=== PATIENT | female | born 1930 | race American Indian/Alaskan Native ===

== ENCOUNTER 2019-11-18 22:09 | Observation (INO) | payer MEDICARE ==
[2019-11-18] MEDS ORDERED: SODIUM CHLORIDE 0.9% 1000 ML 1,000 ML ONE (22:34)
[2019-11-18] MEDS ORDERED: SODIUM CHLORIDE 0.9% 1000 ML 1,000 ML IV ONE ×2 (22:35)
--- NOTE | 2019-11-18 22:49 | Emergency Department Report ---
ED Altered Mental Status HPI - General Chief Complaint: Altered Mental Status Stated Complaint: AMS Time Seen by Provider: 11/18/19 22:21 Source: family, EMS, old records reviewed (no previous record) Mode of arrival: Stretcher Limitations: Altered Mental Status - History of Present Illness Initial Comments: 89-year-old female presents from home with alteration in mental status 1 day. Patient has a past medical history dementia, carotid plaque, asthma, and chronic pain secondary to arthritis. Patient lives with her daughter. I spoke to her daughter via telephone and she states that visiting nurse today found patient to be hypoxic with a room air saturation in the 70s and decreased responsiveness. Patient's room air saturation is typically 92-96%. Only mild cough reported. Until today patient was eating and drinking appropriately, no fever, no complaints of pain, and at baseline mental status. Patient takes Namenda, Risperdal, Plavix, lorazepam, Tylenol arthritis,tramadol, and Advair.Patient's granddaughter at the bedside and states the patient is less responsive than her baseline. Blood glucose 65 in route. We are having difficulty obtaining a pulse oximetry upon arrival. Patient has had multiple abdominal surgeries for , cholecystectomy, possible hysterectomy as per granddaughter Patient denies any pain currently. Noted to bedside at 1:30 AM every interviewed. Informed that patient has a UTI. She states that patient recently completed Cipro 5 days ago for UTI. - Related Data Allergies Allergy/AdvReac Type Severity Reaction Status Date / Time ampicillin Allergy Unknown Verified 11/18/19 22:20 aspirin Allergy Unknown Verified 11/18/19 22:20 metoclopramide [From Reglan] Allergy Unknown Verified 11/18/19 22:20 morphine Allergy Unknown Verified 11/18/19 22:20 oxycodone Allergy Unknown Verified 11/18/19 22:20 ED Review of Systems ROS: Stated complaint: AMS Other details as noted in HPI Comment: All other systems reviewed and negative ED Past Medical Hx - Past Medical History Hx Asthma: Yes ED Physical Exam - General Limitations: Altered Mental Status - Other Other exam information: General: No limitations, patient is alert in no acute distress Head exam: Atraumatic, normocephalic Eyes exam: Normal appearance pupils equal and reactive to light, extraocular movements intact ENT: Moist mucous membrane Neck exam: Normal inspection, full range of motion Respiratory exam: Diminished breath sounds without rales or crackles Cardiovascular: Normal rate and rhythm Abdomen: Soft, nondistended, and nontender, with normal bowel sounds, no rebound, or guarding. Midline vertical surgical scar Extremity: Right knee postoperative change noted, no leg edema Back: Normal Inspection Neurologic: Lethargic but easily arousable to voice and tactile stimulation, oriented to place and name. Equal hand special tester and foot dorsiflexion. Patient does not ambulate at her baseline. Sensation grossly intact to touch bilaterally Psychiatric: Normal mood, affect Skin: No rash ED Course Vital Signs 11/18/19 11/18/19 11/18/19 22:09 22:18 22:30 Temperature 98.1 F Pulse Rate 91 H 90 92 H Respiratory 16 16 17 Rate Blood Pressure 64/26 65/23 Blood Pressure 64/26 [Right] O2 Sat by Pulse Oximetry 11/18/19 11/18/19 11/18/19 23:00 23:30 23:35 Temperature Pulse Rate 91 H 91 H Respiratory 12 18 Rate Blood Pressure 60/24 163/80 Blood Pressure [Right] O2 Sat by Pulse 100 Oximetry 11/19/19 11/19/19 11/19/19 00:00 00:07 01:00 Temperature Pulse Rate 93 H 88 Respiratory 13 16 Rate Blood Pressure Blood Pressure 151/94 179/90 [Right] O2 Sat by Pulse 99 100 100 Oximetry 11/19/19 11/19/19 01:30 02:00 Temperature Pulse Rate 86 86 Respiratory 17 17 Rate Blood Pressure 166/85 168/92 Blood Pressure 168/92 [Right] O2 Sat by Pulse 100 Oximetry - Reevaluation(s) Reevaluation #1: 11/18/19 23:58 On arrival with difficulty obtaining pulse oximetry. ABG requested on room air. ABG results after oxygen removal. Pulse ox then picked up a saturation of 100% on room air with good waveform. Systolic blood pressure improved dramatically after 1 L normal saline IV bolus. Reevaluation #2: 11/19/19 01:38 Levaquin ordered for UTI given her penicillin allergy (hives). Unclear at this time the patient can tolerate cephalosporins. However, daughter states that she recently completed Cipro therefore patient will be changed to another class. One dose of gentamicin IV ordered and Levaquin canceled. Urine culture is pending. - Lab Data Result diagrams: 11/18/19 22:40 02/04/20 23:15 Lab Results 11/18/19 11/18/19 11/18/19 Range/Units 22:40 22:40 22:59 WBC 12.7 H (4.5-11.0) K/mm3 RBC 4.70 (3.65-5.03) M/mm3 Hgb 14.1 (10.1-14.3) gm/dl Hct 41.9 (30.3-42.9) % MCV 89 (79-97) fl MCH 30 (28-32) pg MCHC 34 (30-34) % RDW 13.4 (13.2-15.2) % Plt Count 281 (140-440) K/mm3 Lymph % (Auto) 4.5 L (13.4-35.0) % [place] % (Auto) 5.4 (0.0-7.3) % Eos % (Auto) 0.0 (0.0-4.3) % Baso % (Auto) 0.1 (0.0-1.8) % Lymph # 0.6 L (1.2-5.4) K/mm3 [place] # 0.7 (0.0-0.8) K/mm3 Eos # 0.0 (0.0-0.4) K/mm3 Baso # 0.0 (0.0-0.1) K/mm3 Seg Neutrophils % 90.0 H (40.0-70.0) % Seg Neutrophils # 11.5 H (1.8-7.7) K/mm3 PT 13.4 (12.2-14.9) Sec. INR 1.01 (0.87-1.13) APTT 27.5 (24.2-36.6) Sec. ABG pH 7.415 (7.350-7.450) pH Units ABG pCO2 39.1 mm Hg ABG pO2 178.8 H (80.0-90.0) mm Hg ABG HCO3 24.5 (20.0-26.0) mmol/L ABG O2 Saturation 99.1 H (95.0-99.0) % ABG O2 Content 16.6 (0.0-44) ABG Base Excess 0.1 (-2.0-3.0) mmol/L ABG Hemoglobin 12.1 (12.0-16.0) gm/dl ABG Carboxyhemoglobin 2.9 (0.0-5.0) % ABG Methemoglobin 0.6 (0.0-1.5) % VBG pH 7.415 (7.320-7.420) Oxyhemoglobin 95.6 (95.0-99.0) % FiO2 21 % Sodium (137-145) mmol/L Potassium (3.6-5.0) mmol/L Chloride (98-107) mmol/L Carbon Dioxide (22-30) mmol/L Anion Gap mmol/L BUN (7-17) mg/dL Creatinine (0.7-1.2) mg/dL Estimated GFR ml/min BUN/Creatinine Ratio % Glucose (65-100) mg/dL Lactic Acid (0.7-2.0) mmol/L Calcium (8.4-10.2) mg/dL Magnesium (1.7-2.3) mg/dL Total Bilirubin (0.1-1.2) mg/dL AST (5-40) units/L ALT (7-56) units/L Alkaline Phosphatase (35-129) units/L Total Creatine Kinase (30-135) units/L CK-MB (CK-2) (0.0-4.0) ng/mL CK-MB (CK-2) Rel Index (0-4) Troponin T (0.00-0.029) ng/mL Total Protein (6.3-8.2) g/dL Albumin (3.9-5) g/dL Albumin/Globulin Ratio % Urine Color (Yellow) Urine Turbidity (Clear) Urine pH (5.0-7.0) Ur Specific [place] (1.003-1.030) Urine Protein (Negative) mg/dL Urine Glucose (UA) (Negative) mg/dL Urine Ketones (Negative) mg/dL Urine Blood (Negative) Urine Nitrite (Negative) Urine Bilirubin (Negative) Urine Urobilinogen (<2.0) mg/dL Ur Leukocyte Esterase (Negative) Urine WBC (Auto) (0.0-6.0) /HPF Urine RBC (Auto) (0.0-6.0) /HPF U Epithel Cells (Auto) (0-13.0) /HPF Urine Bacteria (Auto) (Negative) /HPF Urine WBC Clumps /HPF Hyaline Casts /LPF Urine Mucus /HPF 11/18/19 11/18/19 11/18/19 Range/Units 23:15 23:15 23:15 WBC (4.5-11.0) K/mm3 RBC (3.65-5.03) M/mm3 Hgb (10.1-14.3) gm/dl Hct (30.3-42.9) % MCV (79-97) fl MCH (28-32) pg MCHC (30-34) % RDW (13.2-15.2) % Plt Count (140-440) K/mm3 Lymph % (Auto) (13.4-35.0) % [place] % (Auto) (0.0-7.3) % Eos % (Auto) (0.0-4.3) % Baso % (Auto) (0.0-1.8) % Lymph # (1.2-5.4) K/mm3 [place] # (0.0-0.8) K/mm3 Eos # (0.0-0.4) K/mm3 Baso # (0.0-0.1) K/mm3 Seg Neutrophils % (40.0-70.0) % Seg Neutrophils # (1.8-7.7) K/mm3 PT (12.2-14.9) Sec. INR (0.87-1.13) APTT (24.2-36.6) Sec. ABG pH (7.350-7.450) pH Units ABG pCO2 mm Hg ABG pO2 (80.0-90.0) mm Hg ABG HCO3 (20.0-26.0) mmol/L ABG O2 Saturation (95.0-99.0) % ABG O2 Content (0.0-44) ABG Base Excess (-2.0-3.0) mmol/L ABG Hemoglobin (12.0-16.0) gm/dl ABG Carboxyhemoglobin (0.0-5.0) % ABG Methemoglobin (0.0-1.5) % VBG pH (7.320-7.420) Oxyhemoglobin (95.0-99.0) % FiO2 % Sodium 143 (137-145) mmol/L Potassium 4.7 (3.6-5.0) mmol/L Chloride 106.6 (98-107) mmol/L Carbon Dioxide 24 (22-30) mmol/L Anion Gap 17 mmol/L BUN 19 H (7-17) mg/dL Creatinine 0.9 (0.7-1.2) mg/dL Estimated GFR 59 ml/min BUN/Creatinine Ratio 21 % Glucose 129 H (65-100) mg/dL Lactic Acid 1.00 (0.7-2.0) mmol/L Calcium 9.1 (8.4-10.2) mg/dL Magnesium (1.7-2.3) mg/dL Total Bilirubin 0.40 (0.1-1.2) mg/dL AST 17 (5-40) units/L ALT 10 (7-56) units/L Alkaline Phosphatase 78 (35-129) units/L Total Creatine Kinase (30-135) units/L CK-MB (CK-2) (0.0-4.0) ng/mL CK-MB (CK-2) Rel Index (0-4) Troponin T 0.045 H (0.00-0.029) ng/mL Total Protein 5.7 L (6.3-8.2) g/dL Albumin 3.6 L (3.9-5) g/dL Albumin/Globulin Ratio 1.7 % Urine Color (Yellow) Urine Turbidity (Clear) Urine pH (5.0-7.0) Ur Specific [place] (1.003-1.030) Urine Protein (Negative) mg/dL Urine Glucose (UA) (Negative) mg/dL Urine Ketones (Negative) mg/dL Urine Blood (Negative) Urine Nitrite (Negative) Urine Bilirubin (Negative) Urine Urobilinogen (<2.0) mg/dL Ur Leukocyte Esterase (Negative) Urine WBC (Auto) (0.0-6.0) /HPF Urine RBC (Auto) (0.0-6.0) /HPF U Epithel Cells (Auto) (0-13.0) /HPF Urine Bacteria (Auto) (Negative) /HPF Urine WBC Clumps /HPF Hyaline Casts /LPF Urine Mucus /HPF 11/18/19 11/18/19 11/18/19 Range/Units 23:15 23:20 23:58 WBC (4.5-11.0) K/mm3 RBC (3.65-5.03) M/mm3 Hgb (10.1-14.3) gm/dl Hct (30.3-42.9) % MCV (79-97) fl MCH (28-32) pg MCHC (30-34) % RDW (13.2-15.2) % Plt Count (140-440) K/mm3 Lymph % (Auto) (13.4-35.0) % [place] % (Auto) (0.0-7.3) % Eos % (Auto) (0.0-4.3) % Baso % (Auto) (0.0-1.8) % Lymph # (1.2-5.4) K/mm3 [place] # (0.0-0.8) K/mm3 Eos # (0.0-0.4) K/mm3 Baso # (0.0-0.1) K/mm3 Seg Neutrophils % (40.0-70.0) % Seg Neutrophils # (1.8-7.7) K/mm3 PT (12.2-14.9) Sec. INR (0.87-1.13) APTT (24.2-36.6) Sec. ABG pH (7.350-7.450) pH Units ABG pCO2 mm Hg ABG pO2 (80.0-90.0) mm Hg ABG HCO3 (20.0-26.0) mmol/L ABG O2 Saturation (95.0-99.0) % ABG O2 Content (0.0-44) ABG Base Excess (-2.0-3.0) mmol/L ABG Hemoglobin (12.0-16.0) gm/dl ABG Carboxyhemoglobin (0.0-5.0) % ABG Methemoglobin (0.0-1.5) % VBG pH (7.320-7.420) Oxyhemoglobin (95.0-99.0) % FiO2 % Sodium (137-145) mmol/L Potassium (3.6-5.0) mmol/L Chloride (98-107) mmol/L Carbon Dioxide (22-30) mmol/L Anion Gap mmol/L BUN (7-17) mg/dL Creatinine (0.7-1.2) mg/dL Estimated GFR ml/min BUN/Creatinine Ratio % Glucose (65-100) mg/dL Lactic Acid (0.7-2.0) mmol/L Calcium (8.4-10.2) mg/dL Magnesium 2.20 (1.7-2.3) mg/dL Total Bilirubin (0.1-1.2) mg/dL AST (5-40) units/L ALT (7-56) units/L Alkaline Phosphatase (35-129) units/L Total Creatine Kinase 31 (30-135) units/L CK-MB (CK-2) 2.6 (0.0-4.0) ng/mL CK-MB (CK-2) Rel Index 8.3 H (0-4) Troponin T (0.00-0.029) ng/mL Total Protein (6.3-8.2) g/dL Albumin (3.9-5) g/dL Albumin/Globulin Ratio % Urine Color [place] (Yellow) Urine Turbidity Turbid (Clear) Urine pH 5.0 (5.0-7.0) Ur Specific [place] 1.015 (1.003-1.030) Urine Protein <15 mg/dl (Negative) mg/dL Urine Glucose (UA) Neg (Negative) mg/dL Urine Ketones Neg (Negative) mg/dL Urine Blood Mod (Negative) Urine Nitrite Neg (Negative) Urine Bilirubin Neg (Negative) Urine Urobilinogen < 2.0 (<2.0) mg/dL Ur Leukocyte Esterase Lg (Negative) Urine WBC (Auto) > 182.0 H (0.0-6.0) /HPF Urine RBC (Auto) 22.0 (0.0-6.0) /HPF U Epithel Cells (Auto) 1.0 (0-13.0) /HPF Urine Bacteria (Auto) 2+ (Negative) /HPF Urine WBC Clumps 3+ /HPF Hyaline Casts 6 /LPF Urine Mucus 1+ /HPF - EKG Data -: EKG Interpreted by Pr EKG shows normal: sinus rhythm, ST-T waves (lvh) Rate: normal (97) When compared to previous EKG there are: previous EKG unavailable - Radiology Data Radiology results: report reviewed CHEST 1 VIEW INDICATION: MAIN: ams, hypotension, cough; A.M.S received from home, Bld. glucose 65 per e.m.s; response to touch, mumbles.. COMPARISON: None FINDINGS: Support devices: None. Heart: Within normal limits. Lungs/Pleura: No acute air space or interstitial disease. Additional findings: None. IMPRESSION: 1. No acute findings. CT head without contrast HISTORY: Altered Mental Status. TECHNIQUE: Axial imaging performed from the skull apex through the skull base without the use of contrast. All CT scans at this location are performed using CT dose reduction for ALARA by means of automated exposure control. COMPARISON: None FINDINGS: Parenchyma: No acute intracranial hemorrhage or parenchymal abnormality. Ventricles: There is mild diffuse brain atrophy with commensurate ventricular enlargement which is likely age appropriate. Soft tissues: Soft tissues including the orbits appear normal. Bones: No acute osseous abnormality. Sinuses: Sinuses and mastoid air cells are clear. IMPRESSION: No acute abnormality. - Medical Decision Making She presented with hypotension alteration in mental status. Difficulty obtaining pulse oximetry during hypotension. Blood pressure improved with normal saline hydration and pulse ox was 100% on room air. ABG performed with out acid-base disturbance. Patient's is thought to be altered secondary to UTI with recent failed outpatient treatment. Patient provided a dose of gentamicin in the ED. No signs of septic shock or lactic acidosis. CT head unremarkable for acute findings. Hospitalists informed mild trop elevation noted, repeat pending at disp, pt allergic to asa no reports of cp - Differential Diagnosis mi, infection, uti, cva, sepsis, anemia, dehydration Critical Care Time: No Critical care attestation.: If time is entered above; I have spent that time in minutes in the direct care of this critically ill patient, excluding procedure time. ED Disposition Clinical Impression: Altered mental status, UTI (urinary tract infection), Elevated troponin, Dementia Disposition: OP ADMIT IP TO THIS HOSP Is pt being admited?: Yes Does the pt Need Aspirin: No (allergic) Condition: Stable Time of Disposition: 02:20 (Dr Celis/hosp)
[2019-11-18 22:57] LABS: Basophils % (Auto) 0.1 % (0.0-1.8); Hematocrit 41.9 % (30.3-42.9); Hemoglobin 14.1 gm/dl (10.1-14.3); Lymphocytes # (Auto) 0.6 K/mm3 (1.2-5.4); Lymphocytes % (Auto) 4.5 % (13.4-35.0); Mean Corpuscular HGB Conc 34 % (30-34); Mean Corpuscular Volume 89 fl (79-97); Monocytes # (Auto) 0.7 K/mm3 (0.0-0.8); Monocytes % (Auto) 5.4 % (0.0-7.3); Platelet Count 281 K/mm3 (140-440); Red Cell Distribution Width 13.4 % (13.2-15.2)
[2019-11-18 23:07] LABS: INR 1.01 (0.87-1.13)
[2019-11-18 23:08] LABS: Partial Thromboplastin Time 27.5 Sec. (24.2-36.6)
--- NOTE | 2019-11-18 23:11 | XRay Report ---
CHEST 1 VIEW INDICATION: MAIN: ams, hypotension, cough; A.M.S received from home, Bld. glucose 65 per e.m.s; response to touch , mumbles.. COMPARISON: None FINDINGS: Support devices: None. Heart: Within normal limits. Lungs/Pleura: No acute air space or interstitial disease. Additional findings: None. IMPRESSION: 1. No acute findings. Signer Name: Gianluca Earl MD Signed: 11/18/2019 11:07 PM Workstation Name: [id number]
[2019-11-18 23:48] LABS: ABG Base Excess 0.1 mmol/L (-2.0-3.0); ABG HCO3 24.5 mmol/L (20.0-26.0); ABG Methemoglobin 0.6 % (0.0-1.5); ABG Oxygen Saturation 99.1 % (95.0-99.0); ABG PCO2 39.1 mm Hg; ABG PH 7.415 pH Units (7.350-7.450); ABG PO2 178.8 mm Hg (80.0-90.0); VEN PH 7.415 (7.320-7.420)
[2019-11-18 23:54] LABS: Creatine Kinase MB 2.6 ng/mL (0.0-4.0)
[2019-11-18 23:56] LABS: Albumin 3.6 g/dL (3.9-5); Calcium 9.1 mg/dL (8.4-10.2)
[2019-11-19 00:38] LABS: Bacteria,Urine 2+ /HPF (Negative); Bilirubin,Urine NEG (Negative); Blood,Urine MOD (Negative); Color,Urine Amber (Yellow); Hyaline Casts,Urine 6 /LPF; Mucus,Urine 1+ /HPF; Protein,Urine <15 mg/dL mg/dL (Negative); Urobilinogen,Urine < 2.0 mg/dL (<2.0)
[2019-11-19 00:47] LABS: WBC,Urine > 182.0 /HPF (0.0-6.0)
[2019-11-19] MEDS ORDERED: GENTAMICIN IV ONE (01:40)
[2019-11-19] MEDS ORDERED: SODIUM CHLORIDE 0.9% IV ONE (01:40)
--- NOTE | 2019-11-19 02:01 | Cat Scan Report ---
CT head without contrast HISTORY: Altered Mental Status. TECHNIQUE: Axial imaging performed from the skull apex through the skull base without the use of con trast. All CT scans at this location are performed using CT dose reduction for ALARA by means of aut omated exposure control. COMPARISON: None FINDINGS: Parenchyma: No acute intracranial hemorrhage or parenchymal abnormality. Ventricles: There is mild diffuse brain atrophy with commensurate ventricular enlargement which is l ikely age appropriate. Soft tissues: Soft tissues including the orbits appear normal. Bones: No acute osseous abnormality. Sinuses: Sinuses and mastoid air cells are clear. IMPRESSION: No acute abnormality. Signer Name: Gianluca Earl MD Signed: 11/19/2019 1:57 AM Workstation Name: [id number]
[2019-11-19] MEDS ORDERED: ONDANSETRON 4 MG/2 ML INJ IV PRN (03:25)
[2019-11-19] MEDS ORDERED: ACETAMINOPHEN 325 MG TAB PO PRN (03:25)
[2019-11-19] MEDS ORDERED: MAGNESIUM HYDROXIDE (MOM) ORAL LIQD UDC PO PRN (03:25)
[2019-11-19 03:29] LABS: Chol/HDL Ratio 2.82 %
--- NOTE | 2019-11-19 03:50 | History and Physical Report ---
History of Present Illness Date of examination: 11/19/19 Date of admission: 11/19/2019 Chief complaint: Altered mental status History of present illness: 89-year-old -[place] female brought into the emergency room today because of a change in mental status. Patient has known history of dementia, asthma and chronic back pain secondary to arthritis. She was said to be on respite care was found to be hypoxic today with O2 saturation in the 70s and has been less responsive. There is been no history of fever or chills, no nausea vomiting and no diarrhea, no chest pain or shortness of breath. Patient has been on routine medications which includes Namenda, Risperdal, lorazepam, Plavix and Tylenol for arthritis. In route to the hospital blood glucose was said to be 65. It was initially difficult to get oxygen saturation upon arrival in the emergency room but after being placed on oxygen by nasal cannula and placed on IV fluid oxygen saturation improved into the 90s. Granddaughter indicates that patient had recently finished a course of ciproflox acin for urinary tract infection. There has been no hematuria or dysuria. Past History Past Medical History: other (Asthma, dementia) Past Surgical History: No surgical history Social history: no significant social history Medications and Allergies Allergies Allergy/AdvReac Type Severity Reaction Status Date / Time ampicillin Allergy Unknown Verified 11/18/19 22:20 aspirin Allergy Unknown Verified 11/18/19 22:20 metoclopramide [From Reglan] Allergy Unknown Verified 11/18/19 22:20 morphine Allergy Unknown Verified 11/18/19 22:20 oxycodone Allergy Unknown Verified 11/18/19 22:20 Home Medications Medication Instructions Recorded Confirmed Last Taken Type Acetaminophen [8 Hour 1 tab PO Q8HR PRN 11/19/19 11/19/19 Unknown History Acetaminophen] Bumetanide 1 mg PO Q48HR 11/19/19 11/19/19 Unknown History Fluticasone Propion/Salmeterol 16 mcg INHALATION QHS 11/19/19 11/19/19 Unknown History LORazepam [Ativan] 1 mg PO QHS 11/19/19 11/19/19 Unknown History LORazepam [Lorazepam] 1 mg PO QDAY PRN 11/19/19 11/19/19 Unknown History Latanoprostene Bunod [Vyzulta] 5 ml OU QHS 11/19/19 11/19/19 Unknown History allopurinoL [Zyloprim] 100 mg PO QDAY 11/19/19 11/19/19 Unknown History risperiDONE [RisperDAL] 0.5 mg PO QHS 11/19/19 11/19/19 Unknown History traZODone [Desyrel] 50 mg PO QHS 11/19/19 11/19/19 Unknown History Active Meds: Active Medications Acetaminophen (Tylenol) 650 mg PO Q4H PRN PRN Reason: Pain MILD(1-3)/Fever >100.5/YA Gentamicin Sulfate/Sodium Chloride (Gentamicin/Ns 80 Mg/100 Ml) 100 mls @ 200 mls/hr IV PKCONSULT LEANDER; Protocol Magnesium Hydroxide (Milk Of Magnesia) 30 ml PO Q4H PRN PRN Reason: Constipation Ondansetron HCl (Zofran) 4 mg IV Q8H PRN PRN Reason: Nausea And Vomiting Sodium Chloride (Sodium Chloride Flush Syringe 10 Ml) 10 ml IV BID LEANDER Sodium Chloride (Sodium Chloride Flush Syringe 10 Ml) 10 ml IV PRN PRN PRN Reason: LINE FLUSH Review of Systems Constitutional: no fever, no chills Cardiovascular: no chest pain, no palpitations Respiratory: no cough, no wheezing Gastrointestinal: no nausea, no vomiting, no diarrhea Genitourinary Female: no dysuria, no hematuria Musculoskeletal: no neck pain, no low back pain Integumentary: no rash, no pruritis Neurological: change in mentation, no headaches, no change in speech Exam - Constitutional Vitals: Temp Pulse Resp BP Pulse Ox 98.1 F 86 17 168/92 100 11/18/19 22:18 11/19/19 02:00 11/19/19 02:00 11/19/19 02:00 11/19/19 02:00 General appearance: Present: no acute distress, well-nourished - EENT Eyes: Present: PERRL, EOM intact ENT: hearing intact, clear oral mucosa, dentition normal - Neck Neck: Present: supple, normal ROM - Respiratory Respiratory effort: normal Respiratory: bilateral: CTA - Cardiovascular Rhythm: regular Heart Sounds: Present: S1 & S2 - Extremities Extremities: no ischemia, No edema, Full ROM Peripheral Pulses: within normal limits - Abdominal General gastrointestinal: Present: soft, non-tender, non-distended - Integumentary Integumentary: Present: clear, warm, dry - Musculoskeletal Musculoskeletal: strength equal bilaterally - Psychiatric Psychiatric: appropriate mood/affect, intact judgment & insight, cooperative - Neurologic Neurologic: CNII-XII intact, moves all extremities Results - Labs CBC & Chem 7: 11/18/19 22:40 11/18/19 23:15 Labs: Abnormal lab results 11/18/19 11/18/19 11/18/19 Range/Units 22:40 22:59 23:15 WBC 12.7 H (4.5-11.0) K/mm3 Lymph % (Auto) 4.5 L (13.4-35.0) % Lymph # 0.6 L (1.2-5.4) K/mm3 Seg Neutrophils % 90.0 H (40.0-70.0) % Seg Neutrophils # 11.5 H (1.8-7.7) K/mm3 ABG pO2 178.8 H (80.0-90.0) mm Hg ABG O2 Saturation 99.1 H (95.0-99.0) % BUN (7-17) mg/dL Glucose (65-100) mg/dL CK-MB (CK-2) Rel Index (0-4) Troponin T 0.045 H (0.00-0.029) ng/mL Total Protein (6.3-8.2) g/dL Albumin (3.9-5) g/dL HDL Cholesterol 67 H (40-59) mg/dL Urine WBC (Auto) (0.0-6.0) /HPF 11/18/19 11/18/19 11/18/19 Range/Units 23:15 23:15 23:58 WBC (4.5-11.0) K/mm3 Lymph % (Auto) (13.4-35.0) % Lymph # (1.2-5.4) K/mm3 Seg Neutrophils % (40.0-70.0) % Seg Neutrophils # (1.8-7.7) K/mm3 ABG pO2 (80.0-90.0) mm Hg ABG O2 Saturation (95.0-99.0) % BUN 19 H (7-17) mg/dL Glucose 129 H (65-100) mg/dL CK-MB (CK-2) Rel Index 8.3 H (0-4) Troponin T (0.00-0.029) ng/mL Total Protein 5.7 L (6.3-8.2) g/dL Albumin 3.6 L (3.9-5) g/dL HDL Cholesterol (40-59) mg/dL Urine WBC (Auto) > 182.0 H (0.0-6.0) /HPF 11/19/19 Range/Units 02:03 WBC (4.5-11.0) K/mm3 Lymph % (Auto) (13.4-35.0) % Lymph # (1.2-5.4) K/mm3 Seg Neutrophils % (40.0-70.0) % Seg Neutrophils # (1.8-7.7) K/mm3 ABG pO2 (80.0-90.0) mm Hg ABG O2 Saturation (95.0-99.0) % BUN (7-17) mg/dL Glucose (65-100) mg/dL CK-MB (CK-2) Rel Index (0-4) Troponin T 0.045 H (0.00-0.029) ng/mL Total Protein (6.3-8.2) g/dL Albumin (3.9-5) g/dL HDL Cholesterol (40-59) mg/dL Urine WBC (Auto) (0.0-6.0) /HPF Assessment and Plan - Patient Problems (1) Altered mental status Current Visit: Yes Status: Acute Plan to address problem: Possibly secondary to hypoxia versus history of dementia. Will monitor patient mental status closely. (2) Dementia Current Visit: Yes Status: Acute Plan to address problem: We will resume routine home medications once reconciled. (3) Elevated troponin Current Visit: Yes Status: Acute Plan to address problem: Patient denies any chest pain. However will monitor serial cardiac enzymes. (4) UTI (urinary tract infection) Current Visit: Yes Status: Acute Plan to address problem: Patient placed on empiric IV antibiotics. She just finished a course of ciprofloxacin for UTI on outpatient basis. (5) DVT prophylaxis Current Visit: Yes Status: Acute Plan to address problem: Patient placed on subcutaneous heparin. (6) Full code status Current Visit: Yes Status: Acute
[2019-11-19] MEDS ORDERED: GENTAMICIN/NS 80 MG/100 ML 100 ML IV SCH (04:00)
[2019-11-19] MEDS ORDERED: ACETAMINOPHEN PO PRN (08:21)
[2019-11-19] MEDS ORDERED: LORazepam 1 MG TAB PO PRN (10:00)
[2019-11-19] MEDS: allopurinoL 100 MG TAB PO SCH (11:05)
[2019-11-19] MEDS: BUMETANIDE 1 MG TAB PO SCH (11:05)
--- NOTE | 2019-11-19 11:53 | Event Note ---
Date: 11/19/19 This is a follow-up from an admission earlier this morning. Patient seen and examined. We will continue to plan as outlined in H&P. Time spent equals 25 minutes with greater than 50% of time spent on coordination of care and counseling.
[2019-11-19] MEDS: HEPARIN 5,000 UNIT/1 ML VIAL SUB-Q SCH ×2 (15:00→21:37)
[2019-11-19] MEDS: ARFORMOTEROL 15 MCG/2 ML NEBU IH SCH (20:12)
[2019-11-19] MEDS: BUDESONIDE 0.5 MG/2 ML NEBU IH SCH (20:12)
[2019-11-19] MEDS: traZODone 50 MG TAB PO SCH (21:35)
[2019-11-19] MEDS: LORazepam 1 MG TAB PO SCH (21:37)
[2019-11-19] MEDS: risperiDONE 0.25 MG TAB PO SCH (21:37)
[2019-11-19] MEDS ORDERED: SALMETEROL INHALATION SCH (22:00)
[2019-11-19] MEDS ORDERED: NON-FORMULARY EACH (Risperidone [Risperdal] 0.5 MG) PO SCH (22:00)
[2019-11-19] MEDS ORDERED: FLUTICASONE PROPION INHALATION SCH (22:00)
[2019-11-19] MEDS ORDERED: LATANOPROSTENE BUNOD OU SCH (22:00)
[2019-11-20 05:32] LABS: Basophils % (Auto) 0.3 % (0.0-1.8); Eosinophils # (Auto) 0.1 K/mm3 (0.0-0.4); Eosinophils % (Auto) 0.9 % (0.0-4.3); Hematocrit 33.5 % (30.3-42.9); Lymphocytes # (Auto) 1.9 K/mm3 (1.2-5.4); Lymphocytes % (Auto) 19.6 % (13.4-35.0); Mean Corpuscular HGB Conc 33 % (30-34); Mean Corpuscular Volume 89 fl (79-97); Monocytes # (Auto) 0.8 K/mm3 (0.0-0.8); Monocytes % (Auto) 7.9 % (0.0-7.3); Platelet Count 262 K/mm3 (140-440); Red Blood Count 3.78 M/mm3 (3.65-5.03); Red Cell Distribution Width 13.4 % (13.2-15.2)
[2019-11-20 05:45] LABS: INR 1.18 (0.87-1.13)
[2019-11-20 05:46] LABS: Partial Thromboplastin Time 29.6 Sec. (24.2-36.6)
[2019-11-20 06:11] LABS: BUN/Creatinine Ratio 15; Blood Urea Nitrogen 15 mg/dL (7-17); Calcium 9.2 mg/dL (8.4-10.2); Hemolysis Index 1
[2019-11-20] MEDS: HEPARIN 5,000 UNIT/1 ML VIAL SUB-Q SCH ×3 (06:14→21:43)
[2019-11-20] MEDS: BUDESONIDE 0.5 MG/2 ML NEBU IH SCH ×2 (08:32→20:00)
[2019-11-20] MEDS: ARFORMOTEROL 15 MCG/2 ML NEBU IH SCH ×2 (08:34→20:00)
[2019-11-20] MEDS: allopurinoL 100 MG TAB PO SCH (09:17)
--- NOTE | 2019-11-20 11:12 | Progress Note ---
Assessment and Plan Assessment and plan: Sepsis. Present on admission. Patient meets criteria given the tachycardia, altered mentation and diagnosis of UTI. Continue IV antibiotics and follow-up blood cultures. UTI. Follow-up urine culture and continue antibiotics. Toxic encephalopathy. Resolved. Continue to treat underlying cause. Elevated troponin. Cardiology consultation. Patient denied chest pain. Alzheimer's dementia. Stable. History Interval history: No new issues overnight. Hospitalist Physical - Constitutional Vitals: Temp Pulse Resp BP Pulse Ox 98.2 F 73 18 145/77 92 11/20/19 07:48 11/20/19 09:52 11/20/19 08:00 11/20/19 07:48 11/20/19 07:48 General appearance: Present: no acute distress, well-nourished - EENT Eyes: Present: PERRL, EOM intact ENT: hearing intact, clear oral mucosa, dentition normal - Neck Neck: Present: supple, normal ROM - Respiratory Respiratory effort: normal Respiratory: bilateral: CTA - Cardiovascular Rhythm: regular Heart Sounds: Present: S1 & S2. Absent: gallop, rub - Extremities Extremities: no ischemia, No edema, Full ROM - Abdominal General gastrointestinal: soft, non-tender, non-distended, normal bowel sounds - Integumentary Integumentary: Present: clear, warm, dry - Neurologic Neurologic: CNII-XII intact, moves all extremities Results - Labs CBC & Chem 7: 11/20/19 04:55 11/20/19 04:55 Labs: Laboratory Last Values WBC 9.8 K/mm3 (4.5-11.0) 11/20/19 04:55 RBC 3.78 M/mm3 (3.65-5.03) 11/20/19 04:55 Hgb 11.0 gm/dl (10.1-14.3) D 11/20/19 04:55 Hct 33.5 % (30.3-42.9) D 11/20/19 04:55 MCV 89 fl (79-97) 11/20/19 04:55 MCH 29 pg (28-32) 11/20/19 04:55 MCHC 33 % (30-34) 11/20/19 04:55 RDW 13.4 % (13.2-15.2) 11/20/19 04:55 Plt Count 262 K/mm3 (140-440) 11/20/19 04:55 Lymph % (Auto) 19.6 % (13.4-35.0) 11/20/19 04:55 Crisp % (Auto) 7.9 % (0.0-7.3) H 11/20/19 04:55 Eos % (Auto) 0.9 % (0.0-4.3) 11/20/19 04:55 Baso % (Auto) 0.3 % (0.0-1.8) 11/20/19 04:55 Lymph # 1.9 K/mm3 (1.2-5.4) 11/20/19 04:55 Crisp # 0.8 K/mm3 (0.0-0.8) 11/20/19 04:55 Eos # 0.1 K/mm3 (0.0-0.4) 11/20/19 04:55 Baso # 0.0 K/mm3 (0.0-0.1) 11/20/19 04:55 Seg Neutrophils % 71.3 % (40.0-70.0) H 11/20/19 04:55 Seg Neutrophils # 7.0 K/mm3 (1.8-7.7) 11/20/19 04:55 PT 15.2 Sec. (12.2-14.9) H 11/20/19 04:55 INR 1.18 (0.87-1.13) H 11/20/19 04:55 APTT 29.6 Sec. (24.2-36.6) 11/20/19 04:55 ABG pH 7.415 pH Units (7.350-7.450) 11/18/19 22:59 ABG pCO2 39.1 mm Hg 11/18/19 22:59 ABG pO2 178.8 mm Hg (80.0-90.0) H 11/18/19 22:59 ABG HCO3 24.5 mmol/L (20.0-26.0) 11/18/19 22:59 ABG O2 Saturation 99.1 % (95.0-99.0) H 11/18/19 22:59 ABG O2 Content 16.6 (0.0-44) 11/18/19 22:59 ABG Base Excess 0.1 mmol/L (-2.0-3.0) 11/18/19 22:59 ABG Hemoglobin 12.1 gm/dl (12.0-16.0) 11/18/19 22:59 ABG Carboxyhemoglobin 2.9 % (0.0-5.0) 11/18/19 22:59 ABG Methemoglobin 0.6 % (0.0-1.5) 11/18/19 22:59 VBG pH 7.415 (7.320-7.420) 11/18/19 22:59 Oxyhemoglobin 95.6 % (95.0-99.0) 11/18/19 22:59 FiO2 21 % 11/18/19 22:59 Sodium 147 mmol/L (137-145) H 11/20/19 04:55 Potassium 4.0 mmol/L (3.6-5.0) 11/20/19 04:55 Chloride 107.6 mmol/L (98-107) H 11/20/19 04:55 Carbon Dioxide 25 mmol/L (22-30) 11/20/19 04:55 Anion Gap 18 mmol/L 11/20/19 04:55 BUN 15 mg/dL (7-17) 11/20/19 04:55 Creatinine 1.0 mg/dL (0.7-1.2) 11/20/19 04:55 Estimated GFR > 60 ml/min 11/20/19 04:55 BUN/Creatinine Ratio 15 % 11/20/19 04:55 Glucose 84 mg/dL (65-100) 11/20/19 04:55 Lactic Acid 1.00 mmol/L (0.7-2.0) 11/19/19 02:03 Calcium 9.2 mg/dL (8.4-10.2) 11/20/19 04:55 Magnesium 2.20 mg/dL (1.7-2.3) 11/18/19 23:20 Total Bilirubin 0.40 mg/dL (0.1-1.2) 11/18/19 23:15 AST 17 units/L (5-40) 11/18/19 23:15 ALT 10 units/L (7-56) 11/18/19 23:15 Alkaline Phosphatase 78 units/L (35-129) 11/18/19 23:15 Total Creatine Kinase 31 units/L (30-135) 11/18/19 23:15 CK-MB (CK-2) 2.6 ng/mL (0.0-4.0) 11/18/19 23:15 CK-MB (CK-2) Rel Index 8.3 (0-4) H 11/18/19 23:15 Troponin T 0.046 ng/mL (0.00-0.029) H 11/19/19 05:55 Total Protein 5.7 g/dL (6.3-8.2) L 11/18/19 23:15 Albumin 3.6 g/dL (3.9-5) L 11/18/19 23:15 Albumin/Globulin Ratio 1.7 % 11/18/19 23:15 Triglycerides 49 mg/dL (2-149) 11/18/19 23:15 Cholesterol 189 mg/dL (50-199) 11/18/19 23:15 LDL Cholesterol Direct 117 mg/dL (50-130) 11/18/19 23:15 HDL Cholesterol 67 mg/dL (40-59) H 11/18/19 23:15 Cholesterol/HDL Ratio 2.82 % 11/18/19 23:15 Urine Color Beth (Yellow) 11/18/19 23:58 Urine Turbidity Turbid (Clear) 11/18/19 23:58 Urine pH 5.0 (5.0-7.0) 11/18/19 23:58 Ur Specific [place] 1.015 (1.003-1.030) 11/18/19 23:58 Urine Protein <15 mg/dl mg/dL (Negative) 11/18/19 23:58 Urine Glucose (UA) Neg mg/dL (Negative) 11/18/19 23:58 Urine Ketones Neg mg/dL (Negative) 11/18/19 23:58 Urine Blood Mod (Negative) 11/18/19 23:58 Urine Nitrite Neg (Negative) 11/18/19 23:58 Urine Bilirubin Neg (Negative) 11/18/19 23:58 Urine Urobilinogen < 2.0 mg/dL (<2.0) 11/18/19 23:58 Ur Leukocyte Esterase Lg (Negative) 11/18/19 23:58 Urine WBC (Auto) > 182.0 /HPF (0.0-6.0) H 11/18/19 23:58 Urine RBC (Auto) 22.0 /HPF (0.0-6.0) 11/18/19 23:58 U Epithel Cells (Auto) 1.0 /HPF (0-13.0) 11/18/19 23:58 Urine Bacteria (Auto) 2+ /HPF (Negative) 11/18/19 23:58 Urine WBC Clumps 3+ /HPF 11/18/19 23:58 Hyaline Casts 6 /LPF 11/18/19 23:58 Urine Mucus 1+ /HPF 11/18/19 23:58 Active Medications - Current Medications Current Medications: Generic Name Dose Route Start Last Admin Trade Name Freq PRN Reason Stop Dose Admin Acetaminophen 650 mg 11/19/19 03:25 Tylenol PO Q4H PRN Pain MILD(1-3)/Fever >100.5/YA Allopurinol 100 mg 11/19/19 10:00 11/20/19 09:17 Zyloprim PO 100 mg QDAY LEANDER Administration Arformoterol Tartrate 15 mcg 11/19/19 20:00 11/20/19 08:34 Brovana Nebu IH 15 mcg Q12HRT LEANDER Administration Budesonide 0.5 mg 11/19/19 20:00 11/20/19 08:32 Pulmicort IH 0.5 mg Q12HRT LEANDER Administration Bumetanide 1 mg 11/19/19 10:00 11/19/19 11:05 Bumex PO 1 mg Q48HR LEANDER Administration Heparin Sodium (Porcine) 5,000 unit 11/19/19 14:00 11/20/19 06:14 Heparin SUB-Q 5,000 unit Q8HR LEANDER Administration Gentamicin Sulfate 200 mg/ 105 mls @ 108.75 mls/hr 11/20/19 14:00 Sodium Chloride IV Q36H LEANDER Lorazepam 1 mg 11/19/19 22:00 11/19/19 21:37 Ativan PO 1 mg QHS LEANDER Administration Lorazepam 1 mg 11/19/19 10:00 Ativan PO QDAY PRN Anxiety Magnesium Hydroxide 30 ml 11/19/19 03:25 Milk Of Magnesia PO Q4H PRN Constipation Miscellaneous Medication 5 ml 11/19/19 22:00 Latanoprostene Bunod [Vyzulta] OU QHS LEANDER Ondansetron HCl 4 mg 11/19/19 03:25 Zofran IV Q8H PRN Nausea And Vomiting Risperidone 0.5 mg 11/19/19 22:00 11/19/19 21:37 Risperdal PO 0.5 mg QHS LEANDER Administration Sodium Chloride 10 ml 11/19/19 10:00 11/20/19 09:17 Sodium Chloride Flush Syringe 10 Ml IV 10 ml BID LEANDER Administration Sodium Chloride 10 ml 11/19/19 03:25 Sodium Chloride Flush Syringe 10 Ml IV PRN PRN LINE FLUSH Trazodone HCl 50 mg 11/19/19 22:00 11/19/19 21:35 Desyrel PO Not Given QHS LEANDER
[2019-11-20] MEDS ORDERED: GENTAMICIN 200 MG in SODIUM CHLORIDE 0.9% 100 ML IV SCH (14:00)
[2019-11-20] MEDS: risperiDONE 0.25 MG TAB PO SCH (21:41)
[2019-11-20] MEDS: traZODone 50 MG TAB PO SCH (21:41)
[2019-11-20] MEDS: LORazepam 1 MG TAB PO SCH (21:42)
[2019-11-21] MEDS: HEPARIN 5,000 UNIT/1 ML VIAL SUB-Q SCH (06:44)
[2019-11-21] MEDS: ARFORMOTEROL 15 MCG/2 ML NEBU IH SCH (08:12)
[2019-11-21] MEDS: BUDESONIDE 0.5 MG/2 ML NEBU IH SCH (08:12)
[2019-11-21 08:51] VITALS: BP 118/64
[2019-11-21] MEDS: BUMETANIDE 1 MG TAB PO SCH (09:07)
[2019-11-21] MEDS: allopurinoL 100 MG TAB PO SCH (09:07)
--- NOTE | 2019-11-21 10:11 | Discharge Summary ---
Providers - Providers Date of Admission: 11/19/19 05:23 Date of discharge: 11/21/19 Attending physician: EMMY PADRON 11/20/19 11:16 Consult to Physician [CONS] Routine Comment: Consulting Provider: GEORGIA STACY Physician Instructions: Reason For Exam: elevated trop Primary care physician: EN[employer] Hospitalization Reason for admission: uti, sepsis, tox met encepalopathy Condition: Stable Hospital course: 89-year-old -Citizen Of [place] female brought into the emergency room today because of a change in mental status. Patient has known history of dementia, asthma and chronic back pain secondary to arthritis. She was said to be on respite care was found to be hyper responsive prior to admission. Patient reportedly had recently finished a course of ciprofloxacin for UTI. The patient was admitted with diagnosis of sepsis, complicated UTI, toxic metabolic encephalopathy and elevated troponin. Patient was found to have E. coli UTI but blood cultures were negative. Patient's mental status returned back to baseline. With regards to her elevated troponin, and I spoke with cardiology who felt that given her advanced age, dementia and hospice status that no intervention will be initiated. Therefore, I expressed this to the patient's daughter who was in agreement. Patient is felt to have received maximal hospital benefit and will be discharged home. Dedicated discharge time 35 minutes. Disposition: DC- TO HOME OR SELFCARE - Discharge Diagnoses (1) Sepsis Status: Acute (2) Altered mental status Status: Acute (3) Dementia Status: Acute (4) Elevated troponin Status: Acute (5) UTI (urinary tract infection) Status: Acute Core Measure Documentation - Palliative Care Palliative Care/ Comfort Measures: Not Applicable - Core Measures Any of the following diagnoses?: none Exam - Constitutional Vitals: Temp Pulse Resp BP Pulse Ox 98.0 F 59 L 18 118/64 95 11/21/19 08:00 11/21/19 08:00 11/21/19 08:00 11/21/19 08:00 11/21/19 08:00 General appearance: Present: no acute distress, well-nourished - EENT Eyes: Present: PERRL ENT: hearing intact, clear oral mucosa - Neck Neck: Present: supple, normal ROM - Respiratory Respiratory effort: normal Respiratory: bilateral: CTA - Cardiovascular Heart Sounds: Present: S1 & S2. Absent: rub, click - Extremities Extremities: pulses symmetrical, No edema Peripheral Pulses: within normal limits - Abdominal General gastrointestinal: Present: soft, non-tender, non-distended, normal bowel sounds Female genitourinary: Present: normal - Integumentary Integumentary: Present: clear, warm, dry - Musculoskeletal Musculoskeletal: gait normal, strength equal bilaterally - Psychiatric Psychiatric: appropriate mood/affect, intact judgment & insight - Neurologic Neurologic: CNII-XII intact, moves all extremities Plan Activity: advance as tolerated Weight Bearing Status: Weight Bear as Tolerated Diet: regular Follow up with: PRIMARY CARE, [Primary Care Provider] - 7 Days Prescriptions: Bumetanide 1 mg PO Q48HR #30 DOXYCYCLINE Hyclate [Vibramycin CAP] 100 mg PO Q12HR #14 capsule allopurinoL [Zyloprim] 100 mg PO QDAY #30
[2019-11-22] MEDS ORDERED: GENTAMICIN 200 MG in SODIUM CHLORIDE 0.9% 100 ML IV SCH (08:00)
== END 2019-11-21 14:20 | disposition home or self-care (01) ==
LOC: ED 22:09 → INTOOBSV 11-19 05:23 → 4A 11-19 05:23
PROVIDERS: ADMIT Internal Medicine Geriatric Medicine; ATTEND Hospitalist
DX: R41.82 Altered mental status, unspecified (principal); F02.80 Dementia in other diseases classified elsewhere, unspecified severity, without behavioral disturbance, psychotic disturbance, mood disturbance, and anxiety; R74.8 Abnormal levels of other serum enzymes; N39.0 Urinary tract infection, site not specified; J45.909 Unspecified asthma, uncomplicated; Z90.49 Acquired absence of other specified parts of digestive tract; Z98.891 History of uterine scar from previous surgery; Z90.710 Acquired absence of both cervix and uterus
CPT/HCPCS: 36415; 70450; 71045; 80048; 80053; 80061; 80170; 81001; 82140; 82550; 82553; 82803; 82805; 83735; 84484; 85025; 85610; 85730; 87040; 87076; 87086; 87116; 87186; 93005; 93010; 94640; 96361; 96365; 96366; 96372; 99284; G0378; J1580; J1644; J7030